=== PATIENT | female | born 1975 | race Hispanic/Latino ===

== ENCOUNTER 2021-02-21 16:11 | Emergency (ER) | payer SELFPAY ==
[2021-02-21 18:47] VITALS: BP 125/62
--- NOTE | 2021-02-21 18:50 | Event Note ---
ED Screening Note ED Screening Note: Patient presents for substernal chest pain that began earlier today She states it feels like a burning sensation She has associated nausea and vomiting She denies any radiation of the pain or any abdominal pain States that she has tingling in both arms She denies any fever, diarrhea, cough, shortness of breath Denies any sick contacts or recent travel Has not been vaccinated for COVID-19 No past medical history No allergies to medicines States her menstrual cycle began today and she took some Midol and that is when her symptoms began This initial assessment/diagnostic orders/clinical plan/treatment(s) is/are subject to change based on patients health status, clinical progression and re-assessment by fellow clinical providers in the ED. Further treatment and workup at subsequent clinical providers discretion. Patient/guardian urged not to elope from the ED as their condition may be serious if not clinically assessed and managed. Initial orders include: Chest pain protocol
[2021-02-21 19:20] LABS: Hematocrit 38.5 % (30.3-42.9); Hemoglobin 12.9 gm/dl (10.1-14.3); Mean Corpuscular HGB Conc 34 % (30-34); Mean Corpuscular Volume 86 fl (79-97); Platelet Count 231 K/mm3 (140-440); Red Blood Count 4.47 M/mm3 (3.65-5.03); Red Cell Distribution Width 14.7 % (13.2-15.2)
[2021-02-21 19:41] LABS: Alanine Aminotransferase 8 units/L (7-56); Albumin 4.7 g/dL (3.9-5); Blood Urea Nitrogen 10 mg/dL (7-17); Calcium 9.5 mg/dL (8.4-10.2); Hemolysis Index 5
[2021-02-21 19:47] LABS: BUN/Creatinine Ratio 20
[2021-02-21] MEDS ORDERED: SODIUM CHLORIDE 0.9% 1000 ML 1,000 ML IV ONE (19:53)
[2021-02-21] MEDS ORDERED: FAMOTIDINE 20 MG/2 ML INJ IV ONE (19:53)
[2021-02-21] MEDS ORDERED: ONDANSETRON 4 MG/2 ML INJ IV ONE ×2 (19:53→21:43)
[2021-02-21] MEDS ORDERED: HYOSCYAMINE SUBL 0.125 MG TAB SL ONE (19:53)
[2021-02-21] MEDS ORDERED: PANTOPRAZOLE 40 MG INJ IV ONE (19:54)
--- NOTE | 2021-02-21 19:59 | Emergency Department Report ---
ED General Adult HPI - General Chief complaint: Chest Pain Stated complaint: NAUSEA/VOMITING/CHEST PAIN Time Seen by Provider: 02/21/21 18:48 Source: patient Mode of arrival: Ambulatory Limitations: No Limitations - History of Present Illness Initial comments: 45-year-old female patient with history of tubal ligation presents to the emergency department with complaints of chest pain, nausea, and vomiting starting approximately 16 hours ago. Patient states she has experienced approximately 20 episodes of nonbloody emesis since onset. Symptoms were p receded by taking Midol on an empty stomach. Chest pain is described as "pressure" to the left side of her chest, intermittent, worse with lying on the left side. No known sick contacts. No current steroid or antibiotic use. No recent travel. Patient did not receive her COVID-19 vaccination series. Patient attempted to take "nausea medicine" at home prior to arrival but was unable to keep the medication down. Patient does not use alcohol. Denies fever, chills, abdominal pain, pelvic pain, diarrhea, black/bloody stools, shortness of breath, palpitations, urinary symptoms. Denies all other complaints at this time. - Related Data Previous Rx's Medication Instructions Recorded Last Taken Type Dicyclomine [Bentyl] 20 mg PO QID #20 tablet 02/21/21 Unknown Rx Famotidine [Pepcid] 20 mg PO BID 10 Days tablet 02/21/21 Unknown Rx Ondansetron [Zofran Odt] 4 mg PO Q4H #20 tab.rapdis 02/21/21 Unknown Rx Allergies Allergy/AdvReac Type Severity Reaction Status Date / Time No Known Allergies Allergy Unverified 02/21/21 18:48 ED Review of Systems ROS: Stated complaint: NAUSEA/VOMITING/CHEST PAIN Other details as noted in HPI Other: GENERAL: Negative for fever, chills, weight change, anorexia, fatigue. ENT: Negative for ear pain, difficulty hearing, sore throat, nasal congestion, epistaxis. CARDIOVASCULAR: Positive for chest pain. PULMONARY: Negative for cough, dyspnea, wheezing, orthopnea, cyanosis. GASTROINTESTINAL: Positive for nausea and vomiting. MUSCULOSKELETAL: Negative for joint pain, joint swelling, myalgias, back pain, neck pain. NEUROLOGICAL: Negative for headache, seizure, syncope, paresthesias, weakness. INTEGUMENTARY: Negative for erythema, rash, diaphoresis, laceration, ecchymosis. HEMATOLOGICAL: Negative for hemoptysis, hematemesis, hematochezia, hematuria. PSYCHIATRIC: Negative for hallucinations, suicidal ideation, homicidal ideation, anxiety, depression. ED Past Medical Hx - Past Medical History Previous Medical History?: No - Surgical History Past Surgical History?: No - Medications Home Medications: Home Medications Medication Instructions Recorded Confirmed Last Taken Type Dicyclomine [Bentyl] 20 mg PO QID #20 tablet 02/21/21 Unknown Rx Famotidine [Pepcid] 20 mg PO BID 10 Days tablet 02/21/21 Unknown Rx Ondansetron [Zofran Odt] 4 mg PO Q4H #20 tab.rapdis 02/21/21 Unknown Rx ED Physical Exam - General Limitations: No Limitations - Other Other exam information: General: Awake and alert. No acute distress. Head: Atraumatic, normocephalic. Eyes: EOMI. Pupils are equal and round. Normal sclera and conjunctiva. ENT: Oral mucosa is moist. Normal pharyngeal exam. Neck: Supple. No lymphadenopathy. Pulmonary: No respiratory distress. Clear to auscultation bilaterally. Cardiac: Regular rate and rhythm. Pulses are palpable and equal bilaterally. No lower extremity cyanosis or edema. Skin: Warm and dry. No rashes. Abdomen: Soft, non-tender, non-protuberant. No guarding, rigidity, or rebound. Bowel sounds are normal. No organomegaly or masses noted. Back: Normal alignment. No CVA tenderness. Extremities: Symmetrical. Full range of motion intact. Neurological: Alert and oriented, appropriately interactive, no focal deficits. Psych: Cooperative. Appropriate mood and affect. Speech is evenly metered. Thoughts are logically construed. ED Course Vital Signs 02/21/21 02/21/21 18:45 18:47 Temperature 98.9 F 99 F Pulse Rate 62 Respiratory 16 Rate Blood Pressure 125/62 [Right] O2 Sat by Pulse 100 Oximetry ED Medical Decision Making - Lab Data Result diagrams: 02/21/21 18:53 02/21/21 18:53 - EKG Data 02/21/21 21:39 EKG shows normal sinus rhythm with a ventricular rate of 61 bpm. Normal axis. Normal NC interval. Normal QT interval. Good R wave progression. Left atrial enlargement. No ST segment changes. Over read by attending emergency physician, who agrees with this interpretation. 02/21/21 21:40 - Medical Decision Making Differential diagnosis including but not limited to: acute coronary syndrome, Boerhaave syndrome, esophagitis, peptic ulcer disease, dehydration, electrolyte abnormality, viral illness On reevaluation, patient is stable and symptoms have improved. No further vomi ting in the emergency department. She is afebrile, hemodynamically stable, and tolerating oral intake without difficulty. EKG without acute injury pattern. Initial and repeat troponin within normal limits. Labs are unremarkable aside from mild leukocytosis, likely attributable to demargination. test is negative. Chest x-ray is within normal limits. Patient states her symptoms began after taking medication on an empty stomach although viral illness cannot be excluded. There is no clinical indication for further diagnostic work-up on an emergent basis at this time. Patient will be discharged home with appropriate symptomatic treatment and referred to primary care provider for close outpatient follow-up. Patient expressed understanding and is agreeable to plan of care. Dietary modifications discussed. Disease transmission precautions discussed. Strict return precautions provided. Repeat exam is unremarkable and benign. History, exam, diagnostic testing, and current condition do not suggest worrisome pathology to warrant further testing, continued ED treatment, admission, or surgical evaluation at this point. Given the low probability of a significant medical illness, it would be more likely to result in harm than benefit to perform further testing at this stage. Discussed findings, presumptive diagnosis, need for follow-up and specific signs/symptoms that should prompt immediate return to the emergency department. Instructions were explained in detail to the patient in addition to giving written discharge information. Patient expressed understanding and was given the opportunity to ask questions, all of which were satisfactorily answered prior to discharge home. Critical care attestation.: If time is entered above; I have spent that time in minutes in the direct care of this critically ill patient, excluding procedure time. ED Disposition Clinical Impression: Nonspecific chest pain Nausea & vomiting Qualifiers: Vomiting type: unspecified Vomiting Intractability: non-intractable Qualified Code(s): R11.2 - Nausea with vomiting, unspecified Disposition: DC-01 TO HOME OR SELFCARE Is pt being admited?: No Does the pt Need Aspirin: No Condition: Stable Instructions: Nonspecific Chest Pain, Adult, Nausea and Vomiting, Adult, [id number] Additional Instructions: Take Zofran as directed for nausea/vomiting. Take Bentyl as directed for intestinal discomfort. Take Pepcid as directed for stomach discomfort. Rest. Drink plenty of fluids. Wash hands frequently to prevent disease transmission. Do not share food or drinks with others. Gradually advance diet slowly as tolerated. Follow-up with primary care provider this week. Call tomorrow to schedule an appointment. See referral information below. Return to the emergency department immediately for new or worsening symptoms. Specifically, return to the emergency department immediately for fever, worsening pain, dehydration, black/bloody stools, loss of consciousness, difficulty breathing, or any other concerns Prescriptions: Dicyclomine [Bentyl] 20 mg PO QID #20 tablet Famotidine [Pepcid] 20 mg PO BID 10 Days tablet Ondansetron [Zofran Odt] 4 mg PO Q4H #20 tab.rapdis Referrals: RICHI LANG MD [Staff Physician] - 3-5 Days [facility] [Provider Group] - 3-5 Days Time of Disposition: 22:54 HEART Score - HEART Score History: Slightly suspicious EKG: Normal Age: < 45 Risk factors: No known risk factors Troponin: Troponin T < 0.010 ng/mL (0.00-0.029) 02/21/21 21:04 Troponin: < normal limit HEART Score: 0 - Critical Actions Critical Actions: 0-3 pts:0.9-1.7%risk of adverse cardiac event.Candidate for discharge
--- NOTE | 2021-02-21 20:54 | XRay Report ---
CHEST 2 VIEWS INDICATION / CLINICAL INFORMATION: Chest Pain. COMPARISON: None available. FINDINGS: SUPPORT DEVICES: None. HEART / MEDIASTINUM: No significant abnormality. LUNGS / PLEURA: No significant pulmonary or pleural abnormality. No pneumothorax. ADDITIONAL FINDINGS: No significant additional findings. IMPRESSION: 1. No acute findings. Signer Name: Dudley Khan MD Signed: 02/21/2021 8:49 PM Workstation Name: [id number]
[2021-02-22 00:14] LABS: Total Cells Counted 100
[2021-02-22 00:15] LABS: Anisocytosis 1+; Platelet Estimate Consistent w Auto
--- NOTE | 2021-02-22 14:32 | Electrocardiograph Report ---
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
== END 2021-02-21 23:10 | disposition home or self-care (01) ==
LOC: ED 16:11
DX: R07.9 Chest pain, unspecified (principal); R11.2 Nausea with vomiting, unspecified
CPT/HCPCS: 36415; 71046; 80053; 83690; 83735; 84484; 84703; 85007; 85025; 93005; 96361; 96374; 96375; 96376; 99284; C9113; J2405; J7030